=== PATIENT | female | born 1950 | race Caucasian/White ===

== ENCOUNTER 2017-01-27 00:27 | Emergency (ER) | payer OTHER ==
[2017-01-27] MEDS ORDERED: LORAZEPAM CARPU-JECT 2 MG/ML DISP.SYRIN ONE (00:35)
[2017-01-27] MEDS ORDERED: HALOPERIDOL LACTATE 5 MG/ML ONE (00:35)
--- NOTE | 2017-01-27 00:43 | PDOC ---
[id number]6DeMVEAIJKPLGBZEY1PCKKMrSIVRx6aTXQChwnYMBBSpR KyOMEBhLwDmp9KEDROOQ AnsraRjb8+ShEtlLp/hhtTmzXy/U4jxyvAuPWlC/ 0t7HT9E07njPUzGkF377L0DKGSm1bFp9rx5g7ZeJ1EZRQcA9fbcRp0SRKnLQCwQyTOsLQy0N/ 4zr8XnZ0EmuVJQHW1BJt4M48pmOlheqHNMFyn05jBMB/ AC8eEgmJanNNeJDV25xTYQHrFF5qCSC8HQPH5FAWYZYjv6ZiYpoIrWUIPHl//l+ wSrqfW4DXLcgl8jofkUVXdUoXldJBLmBKdJs1gUpnft0uXQqGlD9y9mhrkEpaSUfOujrS1KgVTBU3yjE 7uISAZGpHlNF5FAVcJMO3veaoBsXXU /54yZoiRKvQA+ P5zfUFrCse5iuuTvcSUyhe2N4bJ6WWgtUK0i6mYfF5eqBBqD3pvxoQQAUbiTBOhdHFsfD6cEF+ 0WuxKH9e7Lpd+O+yAVR6JbvXEPLUKfgBL/eNQ0QAID2NMLvwkwxHUngt96GLbTERi5Fkp1+ K22EK6Oq4LE96vMn8Oj1GpvidoAsWkvXL/2BuzxUuZ3wDiuAA0yhnuyESfWy11q+FEqq2xeaGZX4V19+ Sy7GlsvaQ8Tn1X1vwiBeNwrlcfMFVUUgfDexW/FQMei9VVhaJcbgBjHnRjoY9FyAt7We/ mmMQQCP72LLnY443EuVhBYs5UE0C57T6ojAaKGKTfR74krs/ SgoIuC6IBOVMWlzk1iKTqj7531jBsTtEnaKg1ruF7AC+bCMSAd3qlxMk06yw8Zg7jvduM/ ULqt8NTlwnhbzp40jtf0D3/Vmn5/VQLnWgM9+VN73ejU+W4b7W/ PfGnab5TTlt8fTjVUoL3u83QMntgxuT+h5036VDuW0n5B+XODDFv7571l24EASFXbejMLVk7+ yZQKXJS2HUThazDTnHJRo+4M09MuLoERCKeFJ+IKRt6eJvkDRINr4HJ3j4YrQ2W0doIZ5llniPnz0ePh +4x9mtCf/ natWVs9nYYw5ozSwunuHNw2h5ZayPiPSJfBP8ZpdW1dP0Wu3ivDMjLOv3CcIswW3VkvVl1B3enHONQYX lFTkSuQmCC 01/27/17 01:50 Medical Decision Making - Medical Decision Making 01/27/17 00:42 Pt seen by the Advanced Practice Provider under my direct supervision Pt interviewed and examined Ancillary studies reviewed I agree with plan as outlined by the Advanced Practice Provider COLEMAN Alcantara Pt is very hostile and angry and yelling. Pt found by EMS and [place] police with empty vodka bottle in purse. Patient appears intoxicated. She was found in the streets. After multiple attempts at verbal de-escalation, decision was made for patient and staff safety to chemically sedate for agitation. *DC/Admit/Observation/Transfer Diagnosis at time of Disposition: Alcohol abuse - Discharge Dispostion Disposition: HOME Condition at time of disposition: Improved - Referrals Referrals: Catalina Sanchez MD [Primary Care Provider] - - Patient Instructions Printed Discharge Instructions: DI for Alcohol Abuse Additional Instructions: Increase fluids Rest Follow up with your physician Return to the ER for severe/persistent/worsening symptoms
[2017-01-27 00:46] VITALS: BMI 31.1
--- NOTE | 2017-01-27 00:50 | PDOC ---
History of Present Illness - General Chief Complaint: Alcohol intoxication Stated Complaint: INTOX Time Seen by Provider: 01/27/17 00:30 History Source: Patient, EMS, Law Enforcement - History of Present Illness Initial Comments: 01/27/17 00:49 66-year-old female biba and [place] police after finding patient sleeping on a park bench intoxicated. Patient denies any fever, chills, diarrhea, nausea/ vomiting, headaches, dizziness, lightheadedness, neck pains, chest pain, shortness of breath, abdominal pains, urinary symptoms. Patient states she was drinking this afternoon into this evening and has no complaints. Patient states she was brought into the emergency department because she was found in a park bench. Timing/Duration: 1-3 hours Associated Symptoms: reports: denies symptoms Past History - Travel Traveled outside of the country in the last 30 days: No Close contact w/someone who was outside of country & ill: No - Past Medical History Allergies/Adverse Reactions: Allergies Allergy/AdvReac Type Severity Reaction Status Date / Time No Known Allergies Allergy Verified 07/31/14 05:03 Home Medications: Ambulatory Orders Amlodipine Besylate [Norvasc -] 10 mg PO DAILY 06/23/14 Benazepril HCl [Lotensin] 40 mg PO DAILY 06/23/14 Ceftriaxone [Rocephin -] 2 gm IVPB DAILY #21 vial 07/03/14 Metronidazole [Flagyl -] 500 mg PO TID #63 tablet 07/03/14 Oxycodone HCl [Roxicodone -] 5 mg PO Q4H PRN #60 tablet 07/03/14 HTN: Yes Suicide Attempt (Hx): No Thyroid Disease: Yes - Immunization History Td Vaccination: No (unknown) TDAP Vaccination: No (unknown) Immunization Up to Date: (unknown) - Psycho/Social/Smoking Cessation Hx Anxiety: No Suicidal Ideation: No Smoking Status: Yes Smoking History: Unknown if ever smoked Have you smoked in the past 12 months: No Number of Cigarettes Smoked Daily: 1 'Breaking Loose' booklet given: 06/23/14 Hx Alcohol Use: Yes Drug/Substance Use Hx: No Substance Use Type: None Hx Substance Use Treatment: No Review of Systems - Review of Systems Comments:: 01/27/17 00:49 CONSTITUTIONAL: Absent: fever, chills, diaphoresis, generalized weakness, malaise, loss of appetite HEENT: Absent: rhinorrhea, nasal congestion, throat pain, throat swelling, difficulty swallowing, mouth swelling, ear pain, eye pain, visual Changes CARDIOVASCULAR: Absent: chest pain, loss of consciousness, palpitations, irregular heart rate, peripheral edema RESPIRATORY: Absent: cough, shortness of breath, dyspnea with exertion, orthopnea, wheezing, stridor, hemoptysis GASTROINTESTINAL: Absent: abdominal pain, abdominal distension, nausea, vomiting, diarrhea, constipation, melena, hematochezia GENITOURINARY: Absent: dysuria, frequency, urgency, hesitancy, hematuria, flank pain, genital pain MUSCULOSKELETAL: Absent: myalgia, arthralgia, joint swelling SKIN: Absent: rash, itching, pallor HEMATOLOGIC/IMMUNOLOGIC: Absent: easy bleeding, easy bruising, lymphadenopathy, frequent infections ENDOCRINE: Absent: unexplained weight gain, unexplained weight loss, heat intolerance, cold intolerance NEUROLOGIC: Absent: headache, focal weakness or paresthesias, dizziness, unsteady gait, seizure, mental status changes, bladder or bowel incontinence PSYCHIATRIC: Absent: anxiety, depression, suicidal or homicidal ideation, hallucinations. *Physical Exam - Vital Signs Last Vital Signs Temp Pulse Resp BP Pulse Ox 92 H 16 127/112 100 01/27/17 00:40 01/27/17 00:40 01/27/17 00:40 01/27/17 00:40 - Physical Exam Comments: 01/27/17 00:49 GENERAL: +AOB Well developed, well nourished. Awake and alert. No acute distress. HEENT: Normocephalic, atraumatic. PERRLA, EOMI. No conjunctival pallor. Sclera are non- icteric. Moist mucous membranes. Oropharynx is clear. NECK: Supple. Full ROM. No JVD. Carotid pulses 2+ and symmetric, without bruits. No thyromegaly. No lymphadenopathy. CARDIOVASCULAR: Regular rate and rhythm. No murmurs, rubs, or gallops. Distal pulses are 2+ and symmetric. PULMONARY: No evidence of respiratory distress. Lungs clear to auscultation bilaterally. No wheezing, rales or rhonchi. ABDOMINAL: Soft. Non-tender. Non-distended. No rebound or guarding. No organomegaly. Normoactive bowel sounds. MUSCULOSKELETAL Normal range of motion at all joints. No bony deformities or tenderness. No CVA tenderness. EXTREMITIES: No cyanosis. No clubbing. No edema. No calf tenderness. SKIN: Warm and dry. Normal capillary refill. No rashes. No jaundice. NEUROLOGICAL: Alert, awake, appropriate. Cranial nerves 2-12 intact. No deficits to light touch and temperature in face, upper extremities and lower extremities. No motor deficits in the in face, upper extremities and lower extremities. Normoreflexic in the upper and lower extremities. Normal speech. Toes are down- going bilaterally. Gait is normal without ataxia. PSYCHIATRIC: Cooperative. Good eye contact. Appropriate mood and affect. ED Treatment Course - LABORATORY CBC & Chemistry Diagram: 01/27/17 01:50 01/27/17 01:50 *DC/Admit/Observation/Transfer Diagnosis at time of Disposition: Alcohol abuse - Discharge Dispostion Disposition: HOME Condition at time of disposition: Stable - Referrals Referrals: Catalina Sanchez MD [Primary Care Provider] - - Patient Instructions Printed Discharge Instructions: DI for Alcohol Abuse Additional Instructions: Increase fluids Rest Follow up with your physician Return to the ER for severe/persistent/worsening symptoms
[2017-01-27] MEDS ORDERED: HALOPERIDOL LACTATE 5 MG/ML IM ONE (01:13)
[2017-01-27] MEDS ORDERED: LORAZEPAM CARPU-JECT 2 MG/ML DISP.SYRIN IM ONE (01:13)
[2017-01-27] MEDS ORDERED: SODIUM CHLORIDE 1,000 ML IV STA (01:53)
[2017-01-27 02:35] LABS: BASOPHIL 0.9 % (0-2.0); MCH 30.9 pg (25.7-33.7); MCHC 34.1 g/dl (32.0-36.0); MEAN CELL VOLUME 90.5 fl (80-96); NEUTROPHILS 43.2 % (42.8-82.8); PLATELET COUNT 296 K/MM3 (134-434); RDW 13.5 % (11.6-15.6); WHITE BLOOD COUNT 8.8 K/mm3 (4.0-10.0)
[2017-01-27 03:01] LABS: ALK PHOS 62 U/L (45-117); ANION GAP 12 (8-16); BILIRUBIN,TOTAL 0.3 mg/dL (0.2-1.0); CALCIUM 8.6 mg/dL (8.5-10.1); CO2 24 mmol/L (21-32); COCKROFT - GAULT 113.7895; CREATININE 0.6 mg/dL (0.55-1.02); GLUCOSE,RANDOM 91 mg/dL (74-106); SGOT/AST 17 U/L (15-37); SGPT/ALT 25 U/L (12-78); TOT PROT 7.4 g/dl (6.4-8.2)
[2017-01-27 06:21] VITALS: BP 103/59; PULSE 78
--- NOTE | 2017-01-27 07:25 | PDOC ---
*Physical Exam - Vital Signs Last Vital Signs Temp Pulse Resp BP Pulse Ox 78 16 103/59 98 01/27/17 06:20 01/27/17 06:20 01/27/17 06:20 01/27/17 06:20 - Physical Exam General Appearance: Yes: Appropriately Dressed. No: Apparent Distress HEENT: positive: Normal Voice Neck: positive: Supple Respiratory/Chest: negative: Respiratory Distress Gastrointestinal/Abdominal: positive: Soft. negative: Tender Integumentary: positive: Dry, Warm Neurologic: positive: Fully Oriented, Alert, Normal Mood/Affect ED Treatment Course - LABORATORY CBC & Chemistry Diagram: 01/27/17 01:50 01/27/17 01:50 - ADDITIONAL ORDERS Additional order review: Laboratory Results 01/27/17 01/27/17 01:50 01:50 Sodium 140 Potassium 3.6 D Chloride 104 Carbon Dioxide 24 Anion Gap 12 BUN 11 D Creatinine 0.6 Creat Clearance w eGFR > 60 Random Glucose 91 Calcium 8.6 Total Bilirubin 0.3 AST 17 ALT 25 Alkaline Phosphatase 62 Total Protein 7.4 D Albumin 4.0 D Alcohol, Quantitative 286.0 H* 01/27/17 01:50 RBC 4.21 D MCV 90.5 MCHC 34.1 RDW 13.5 D MPV 7.0 L Neutrophils % 43.2 D Lymphocytes % 46.0 H D Monocytes % 7.9 Eosinophils % 2.0 Basophils % 0.9 D - Medications Given in the ED: ED Medications Discontinued Medications Generic Name Dose Route Start Last Admin Trade Name Freq PRN Reason Stop Dose Admin Haloperidol 5 mg 01/27/17 01:13 01/27/17 01:14 Haldol Injection (Fast Acting) - IM 01/27/17 01:14 5 mg ONCE ONE Administration Sodium Chloride 1,000 mls @ 1,000 mls/hr 01/27/17 01:53 01/27/17 02:14 Normal Saline - IV 01/27/17 02:52 1,000 mls/hr ASDIR STA Administration Lorazepam 2 mg 01/27/17 01:13 01/27/17 01:14 Ativan Injection - IM 01/27/17 01:14 2 mg ONCE ONE Administration Medical Decision Making - Medical Decision Making 01/27/17 07:24 Received S.O at 7am 66 yo F, h/o HTN, PNA, BIB EMS after found intoxicated on park bench. No s/o trauma. Basic labs unremarkable -sobriety -watch for w/drawal 01/27/17 07:31 01/27/17 07:47 Pt awake and alert and requesting discharge at this time *DC/Admit/Observation/Transfer Diagnosis at time of Disposition: Alcohol abuse - Discharge Dispostion Disposition: HOME Condition at time of disposition: Improved - Referrals Referrals: Catalina Sanchez MD [Primary Care Provider] - - Patient Instructions Printed Discharge Instructions: DI for Alcohol Abuse Additional Instructions: Increase fluids Rest Follow up with your physician Return to the ER for severe/persistent/worsening symptoms - Post Discharge Activity
== END 2017-01-27 08:13 | disposition home or self-care (01) ==
LOC: JER 00:27
PROC: 3E0337Z Introduction of Electrolytic and Water Balance Substance into Peripheral Vein, Percutaneous Approach (ICD-10-PCS; principal; 2017-01-27)
PROC: 3E023NZ Introduction of Analgesics, Hypnotics, Sedatives into Muscle, Percutaneous Approach (ICD-10-PCS; 2017-01-27)
PROC: 3E023GC Introduction of Other Therapeutic Substance into Muscle, Percutaneous Approach (ICD-10-PCS; 2017-01-27)
DX: F10.120 Alcohol abuse with intoxication, uncomplicated (principal); Y90.8 Blood alcohol level of 240 mg/100 ml or more; I10 Essential (primary) hypertension; E07.9 Disorder of thyroid, unspecified
CPT/HCPCS: 36415; 80053; 80307; 85025; 96360; 96372; 99282-25

== ENCOUNTER 2024-05-27 12:08 | Emergency (ER) | payer OTHER ==
[2024-05-27 13:06] VITALS: BP 143/78; PULSE 91; RESP 18; TEMP 98.2; BMI 23.3
[2024-05-27] MEDS ORDERED: DIPHTH,PERTUSS(ACELL),TET 0.5 ML DISP.SYRIN IM ONE (13:50)
[2024-05-27] MEDS: TETANUS AND DIPHTHERIA TOXOID 0.5 ML DISP.SYRIN IM ONE (13:55)
== END 2024-05-27 16:19 | disposition home or self-care (01) ==
LOC: JER 12:08
PROC: 0XQRXZZ Repair Left Middle Finger, External Approach (ICD-10-PCS; principal; 2024-05-27)
PROC: 3E0234Z Introduction of Serum, Toxoid and Vaccine into Muscle, Percutaneous Approach (ICD-10-PCS; 2024-05-27)
DX: S61.313A Laceration without foreign body of left middle finger with damage to nail, initial encounter (principal); S61.215A Laceration without foreign body of left ring finger without damage to nail, initial encounter; R20.0 Anesthesia of skin; W29.3XXA Contact with powered garden and outdoor hand tools and machinery, initial encounter
CPT/HCPCS: 73140-TC-LT-FY; 99284-25